=== PATIENT | male | born 1950 | race Caucasian/White ===

== ENCOUNTER → 2016-09-23 | Outpatient (CLI) | payer MEDICARE, BC ==
[~2016-09-23] VITALS: Ht 188 cm; Wt 119.3 kg
[~2016-09-23] MED LIST: ASPI1TAB PO; CIAL10TA PO; FISH100049 PO; HUMIKIT2 SC; IBUP200C PO; LIDOCAINE 2% INJ 100 MG/5 ML SDV (FOR ANES.) As Ordered ONE; NS 1,000 ML IV SCH; PROPOFOL 200 MG/20 ML VIAL As Ordered ONE
--- NOTE | 2016-09-23 11:26 | ROOR ---
Patient Name: Alfred Horn Procedure Date: 09/23/2016 10:58 AM Date of : 1950 Age: 66 Room: [facility] Gender: Male Note Status: Finalized Procedure: Colonoscopy Indications: Screening for colorectal malignant neoplasm Providers: Isiah DE LA O MD Referring MD: ESA SCHULTE MD Requesting Provider: Medicines: Monitored Anesthesia Care Complications: No immediate complications. Procedure: Pre-Anesthesia Assessment: - The heart rate, respiratory rate, oxygen saturations, blood pressure, adequacy of pulmonary ventilation, and response to care were monitored throughout the procedure. The Colonoscope was introduced through the anus and advanced to the cecum, identified by appendiceal orifice and ileocecal valve. The colonoscopy was performed without difficulty. The patient tolerated the procedure well. The quality of the bowel preparation was good. Findings: The perianal and digital rectal examinations were normal. (Exam: Complete, Prep: Good or Excellent.) A 5 mm polyp was found in the ascending colon. The polyp was sessile. The polyp was removed with a cold snare. Resection and retrieval were complete. A 4 mm polyp was found in the sigmoid colon. The polyp was sessile. The polyp was removed with a cold snare. Resection and retrieval were complete. A 6 mm polyp was found in the rectum. The polyp was sessile. The polyp was removed with a cold snare. Resection and retrieval were complete. To prevent bleeding after the polypectomy, two hemostatic clips were successfully placed (MR conditional). There was no bleeding at the end of the procedure. The exam was otherwise normal throughout the examined colon. Impression: - One 5 mm polyp in the ascending colon, removed with a cold snare. Resected and retrieved. - One 4 mm polyp in the sigmoid colon, removed with a cold snare. Resected and retrieved. - One 6 mm polyp (adenomatous) in the rectum, removed with a cold snare. Resected and retrieved. Clips (MR conditional) were placed. - The examination was otherwise normal on direct and retroflexion views. Recommendation: - Telephone endoscopist for pathology results in 2 weeks. - If the pathology report is benign, then repeat colonoscopy for surveillance in 3 years. Isiah De La O MD Isiah DE LA O MD 09/23/2016 11:26:31 AM This report has been signed electronically. Number of Addenda: 0 Note Initiated On: 09/23/2016 10:58 AM Estimated Blood Loss: Estimated blood loss: none.
[2016-09-23 11:54] VITALS: BP 151/90
== END | disposition home or self-care (01) ==
LOC: M OPP 10:10
PROVIDERS: ATTEND Internal Medicine Gastroenterology
DX: Z12.11 Encounter for screening for malignant neoplasm of colon (principal); D12.2 Benign neoplasm of ascending colon; D12.5 Benign neoplasm of sigmoid colon; K62.1 Rectal polyp; L40.9 Psoriasis, unspecified; Z87.891 Personal history of nicotine dependence; Z79.82 Long term (current) use of aspirin; Z79.899 Other long term (current) drug therapy; Z88.0 Allergy status to penicillin

== ENCOUNTER → 2017-01-10 | Outpatient (CLI) | payer MEDICARE, BC ==
[~2017-01-10] MED LIST changes: -LIDOCAINE 2% INJ 100 MG/5 ML SDV (FOR ANES.) As Ordered ONE; -NS 1,000 ML IV SCH; -PROPOFOL 200 MG/20 ML VIAL As Ordered ONE
[2017-01-10 18:01] LABS: BASO % 0.8 % (0.0-1.0); EOS # 0.2 K/mm3 (0.0-0.50); EOS % 2.7 % (0.0-3.0); LYMPH # 2.1 K/mm3 (1.5-4.5); LYMPH % 34.1 % (24.0-44.0); MEAN CORPUSCULAR HGB CONC 35.3 g/dl (32.0-36.5); MEAN CORPUSCULAR VOLUME 93.3 fl (80.0-96.0); MONO # 0.5 K/mm3 (0.0-0.8); MONO % 7.4 % (0.0-5.0); NEUTROPHILS # 3.2 K/mm3 (1.8-7.7); NEUTROPHILS % 52.2 % (36.0-66.0); RED CELL DISTRIBUTION WIDTH 13.8 % (11.5-14.5); WHITE BLOOD COUNT 6.1 K/mm3 (4.0-10.0)
[2017-01-10 18:55] LABS: ALBUMIN 3.8 GM/DL (3.2-5.2); ALT/SGPT 47 U/L (12-78); AST/SGOT 27 U/L (15-37); CREATININE FOR GFR 1.19 MG/DL (0.70-1.30); GLOMERULAR FILTRATION RATE > 60.0 (>49)
== END ==
LOC: M WUC 14:24
PROVIDERS: ATTEND Internal Medicine Rheumatology
DX: Z51.81 Encounter for therapeutic drug level monitoring (principal); Z79.899 Other long term (current) drug therapy

== ENCOUNTER → 2017-11-21 | Outpatient (REF) | payer MEDICARE, BC | LOC: M LAB REF 13:15 | DX: M19.072 Primary osteoarthritis, left ankle and foot (principal); Z89.422 Acquired absence of other left toe(s) | CPT/HCPCS: 88305 ==

== ENCOUNTER → 2019-07-27 | Outpatient (CLI) | payer MEDICARE, BC ==
[~2019-07-27] MED LIST changes: -ASPI1TAB PO; +ASPI81TA26 PO; -IBUP200C PO; +IBUP200C25 PO
--- NOTE | 2019-07-27 11:47 | REP ---
REASON: Right sided contusion. PRIORS: None. FINDINGS: Five views of the ribs show no acute fracture or destructive osseous lesion. The accompanying frontal view of the chest shows no cardiomegaly, infiltrates, effusions or pneumothoraces. IMPRESSION: Negative rib series. Electronically Signed by Yousif Knox DO 07/27/2019 12:16 P
== END ==
LOC: M ADAMS 09:40
PROVIDERS: ATTEND Physician Assistant
DX: S20.221A Contusion of right back wall of thorax, initial encounter (principal); Y92.9 Unspecified place or not applicable; Y93.9 Activity, unspecified; Y99.9 Unspecified external cause status

== ENCOUNTER → 2019-08-31 | Outpatient (CLI) | payer MEDICARE, BC ==
[2019-08-31 12:34] LABS: CHOLESTEROL RISK RATIO 2.934 (<5)
== END ==
LOC: M LAB 11:02
PROVIDERS: ATTEND Internal Medicine Cardiovascular Disease
DX: I25.10 Atherosclerotic heart disease of native coronary artery without angina pectoris (principal)

== ENCOUNTER → 2019-09-16 | Outpatient (CLI) | payer MEDICARE, BC ==
--- NOTE | 2019-09-16 16:56 | REP ---
Clinical: Dyspnea. Technique: PA and lateral. Comparison: 09/30/2002. Findings: Perihilar and lower lobe opacities suggest atelectasis/pneumonia. No effusion. No pneumothorax. Mediastinum and cardiac silhouette normal. Skeletal structures intact. Impression: Lower lobe opacities suggesting elements of atelectasis/pneumonia. Follow-up to resolution recommended. Electronically Signed by Matias Fuchs MD 09/16/2019 04:48 P
== END ==
LOC: M ADAMS 16:36
PROVIDERS: ATTEND Physician Assistant
DX: R91.8 Other nonspecific abnormal finding of lung field (principal); R06.00 Dyspnea, unspecified

== ENCOUNTER → 2019-09-19 | Outpatient (CLI) | payer MEDICARE, BC ==
--- NOTE | 2019-09-23 10:41 | SLEEPCENT ---
DATE OF PROCEDURE: 09/19/2019 ORDERED BY: Matias Tamez Nocturnal polysomnography was performed for evaluation of sleep physiology in this patient with a history of snoring and morning headaches. 7 hours and 54 minutes of data were reviewed. There were 341.5 minutes of sleep identified. Sleep latency was short at 3.5 minutes. Rapid eye movement (REM) latency was prolonged at 166 minutes. Sleep architecture was poor. There were 3 REM cycles noted. Overall sleep efficiency was 73.4%. The patient's electrocardiogram showed a sinus rhythm with an average heart rate 60 beats per minute. Electroencephalogram showed electrocardiogram (EKG) artifact. No focal events were identified. There were normal waveforms for awake and sleep stages. There were 132 respiratory events identified of 10 seconds in duration or greater for an apnea-hypopnea index of 23.2. The events were primarily obstructive with 18 mixed and central apneas. Arousals from respiratory events occurred 11.4 times per hour and oxygen desaturations were seen into the 80s. There was some limb activity appreciated as well. Limb movement arousal index was 4. IMPRESSION: Obstructive sleep apnea syndrome (G47.33). Apnea-hypopnea index 23.2. RECOMMENDATION: The patient should be encouraged to return to the sleep disorder center for pressure therapy. In the interim, alcohol and sedative avoidance should be practiced and caution exercised during the operation of motor vehicles.
== END ==
LOC: M SLEEP 19:22
PROVIDERS: ATTEND Physician Assistant
DX: R06.83 Snoring (principal)

== ENCOUNTER 2019-10-10 16:25 | Emergency (ER) | payer MEDICARE, BC ==
[~2019-10-10] VITALS: Ht 188 cm; Wt 113.6 kg
[2019-10-10] MEDS ORDERED: CLOP75TA2 (16:44)
[2019-10-10] MEDS ORDERED: ATOR80TA59 (16:44)
[2019-10-10] MEDS ORDERED: METO1TAB87 PO (16:44)
--- NOTE | 2019-10-10 17:14 | REPVR ---
PROCEDURE INFORMATION: Exam: CT Head Without Contrast Exam date and time: 10/10/2019 4:42 PM Age: 69 years old Clinical indication: Altered mental status/memory loss TECHNIQUE: Imaging protocol: Computed tomography of the head without contrast. Axial and coronal reformatted images were created and reviewed. Radiation optimization: All CT scans at this facility use at least one of these dose optimization techniques: automated exposure control; mA and/or kV adjustment per patient size (includes targeted exams where dose is matched to clinical indication); or iterative reconstruction. COMPARISON: No relevant prior studies available. FINDINGS: Brain: Subtle, patchy areas of hypoattenuation in the periventricular and subcortical white matter, nonspecific but suggestive of mild chronic small vessel ischemic disease. No CT evidence of acute intracranial hemorrhage or acute territorial infarction. No significant mass effect or midline shift. Basal cisterns patent. Ventricles: Prominence of the cortical sulci, cisterns and ventricular system, consistent with cerebral and cerebellar volume loss. Bones/joints: No acute osseous abnormality. Sinuses: Grossly unremarkable. Mastoid air cells: Grossly unremarkable. Soft tissues: Grossly unremarkable. Vasculature: Calcific atherosclerotic disease in the cavernous internal carotid arteries. IMPRESSION: 1. No CT evidence of acute intracranial pathology. 2. Additional findings, as above. Electronically signed by: Mio Cao On 10/10/2019 17:14:37 PM
[2019-10-10 17:28] LABS: VENOUS HCO3 24.9 MEQ/L (23.0-27.0); VENOUS O2 SATURATION 50.6 % (60.0-80.0); VENOUS PARTIAL PRESSURE CO2 45.6 mmHg (38.0-50.0); VENOUS PH 7.355 UNITS (7.330-7.430); VENOUS STANDARD HCO3 22.2 MEQ/L; VENOUS TOTAL CO2 26.3 MEQ/L (24.0-28.0)
[2019-10-10 17:37] LABS: BASO % 0.7 % (0.0-1.0); EOS # 0.1 10^3/uL (0.0-0.5); EOS % 2.2 % (0.0-3.0); HEMATOCRIT 50.4 % (42.0-52.0); HEMOGLOBIN 17.6 g/dl (13.5-17.5); LYMPH # 1.4 10^3/uL (1.5-5.0); LYMPH % 23.6 % (24.0-44.0); MEAN CORPUSCULAR HEMOGLOBIN 31.9 pg (27.0-33.0); MEAN CORPUSCULAR HGB CONC 34.9 g/dl (32.0-36.5); MEAN CORPUSCULAR VOLUME 91.3 fl (80.0-96.0); MONO # 0.6 10^3/uL (0.0-0.8); MONO % 9.8 % (0.0-5.0); NEUTROPHILS # 3.8 10^3/uL (1.5-8.5); NEUTROPHILS % 63.4 % (36.0-66.0); PLATELET COUNT, AUTOMATED 177 10^3/uL (150-450); RED BLOOD COUNT 5.52 10^6/uL (4.30-6.10); WHITE BLOOD COUNT 5.9 10^3/uL (4.0-10.0)
[2019-10-10] MEDS ORDERED: MECLIZINE 25 MG TABLET PO ONE ×2 (17:45→21:30)
[2019-10-10 18:12] LABS: ALT/SGPT 66 U/L (12-78); BILIRUBIN,DIRECT 0.3 MG/DL (0.0-0.2); BLOOD UREA NITROGEN 13 MG/DL (7-18); CALCIUM LEVEL 9.2 MG/DL (8.8-10.2); CARBON DIOXIDE LEVEL 28 MEQ/L (21-32); CHLORIDE LEVEL 108 MEQ/L (98-107); CK-MB VALUE MASS 2.8 NG/ML (<3.6); CPK CREATINE PHOSPHOKINASE 131 U/L (39-308); CREATININE FOR GFR 0.96 MG/DL (0.70-1.30); GLOMERULAR FILTRATION RATE > 60.0 (>42); GLUCOSE, FASTING 83 MG/DL (70-100); MB/CK RELATIVE INDEX 2.14 (< OR =4); POTASSIUM SERUM 4.2 MEQ/L (3.5-5.1); SODIUM LEVEL 142 MEQ/L (136-145); THYROID STIMULATING HORMONE 0.839 uIU/ML (0.358-3.740); TOTAL PROTEIN 7.6 GM/DL (6.4-8.2); TROPONIN I < 0.02 NG/ML (< 0.10)
--- NOTE | 2019-10-10 18:44 | REP ---
CHEST, SINGLE VIEW: There is no evidence of acute infiltrate. No pleural effusion is seen. The heart is normal in size. The mediastinal silhouette is unremarkable. The visualized osseous structures are intact. IMPRESSION: No acute pulmonary disease. Electronically Signed by Derek Maya MD 10/11/2019 05:04 P
[2019-10-10] MEDS ORDERED: MECL1TAB31 PO (19:53)
--- NOTE | 2019-10-10 21:20 | ECGEPIP ---
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
[2019-10-10 21:33] VITALS: BP 135/67
== END 2019-10-10 21:35 | disposition home or self-care (01) ==
LOC: M ED 16:25
DX: R42 Dizziness and giddiness (principal); I25.10 Atherosclerotic heart disease of native coronary artery without angina pectoris; G47.33 Obstructive sleep apnea (adult) (pediatric); Z95.5 Presence of coronary angioplasty implant and graft; Z88.0 Allergy status to penicillin; Z79.899 Other long term (current) drug therapy; Z79.82 Long term (current) use of aspirin; Z79.01 Long term (current) use of anticoagulants

== ENCOUNTER → 2019-10-20 | Outpatient (CLI) | payer MEDICARE, BC ==
[~2019-10-20] MED LIST changes: +ATOR80TA59; +CLOP75TA2; +MECL1TAB31 PO; +METO1TAB87 PO
--- NOTE | 2019-10-22 12:28 | SLEEPCENT ---
DATE OF PROCEDURE: 10/20/2019 ORDERED BY: SMOOTH Dunn Nocturnal polysomnography was performed for the titration of pressure therapy in this patient with obstructive sleep apnea syndrome. Apnea-hypopnea index 23.2. For testing a ResMed AirFit F20 full-face mask of large size was used; 4 cm of water pressure were applied to the circuit and the lights were extinguished. 7 hours and 28 minutes of data were reviewed. There were 287 minutes of sleep identified. Sleep latency was short of 23.5 minutes. Rapid eye movement (REM) latency was short at 57.5 minutes. Sleep architecture was good with three REM cycles. Overall sleep efficiency was 65.2%. The patient's electrocardiogram showed a sinus rhythm with an average heart rate of 65 beats per minute. Electroencephalogram (EEG) showed normal waveforms for awake and sleep. Respiratory events were fully palliated with CPAP at a pressure +8. There was some persistent activity in the limb leads. Limb movement arousal index on this occasion was 7.7. IMPRESSION: Obstructive sleep apnea syndrome (G47.33). RECOMMENDATIONS: Nightly use of pressure therapy 8 cm of water.
== END ==
LOC: M SLEEP 19:44
PROVIDERS: ATTEND Physician Assistant
DX: G47.33 Obstructive sleep apnea (adult) (pediatric) (principal)

== ENCOUNTER → 2020-06-13 | Outpatient (CLI) | payer MEDICARE, BC ==
[~2020-06-13] MED LIST changes: -ATOR80TA59; +ATOR80TA59 PO; -CLOP75TA2; +CLOP75TA2 PO; +FISH1000 PO; +NITR0.4S14 SL; +SYMB80INH INH; +VENL75TA2 PO; +VENTAER INH
== END ==
LOC: M LABSMTC 08:29
PROVIDERS: ATTEND Anesthesiology
DX: Z01.812 Encounter for preprocedural laboratory examination (principal); Z20.828 Contact with and (suspected) exposure to other viral communicable diseases
CPT/HCPCS: C9803; U0003

== ENCOUNTER 2020-06-18 09:03 | Day surgery (SDC) | payer MEDICARE, BC ==
[~2020-06-18] VITALS: Ht 188 cm; Wt 116.1 kg
[~2020-06-18 09:03] MED LIST changes: +NS 1,000 ML IV ONE
[2020-06-18] MEDS ORDERED: propofoL 200 MG/20 ML VIAL As Ordered ONE (09:56)
[2020-06-18] MEDS ORDERED: LIDOCAINE 2% 100MG/5ML SDV (FOR ANES.) As Ordered ONE (09:56)
--- NOTE | 2020-06-18 11:29 | ROOR ---
Patient Name: Alfred Horn Procedure Date: 06/18/2020 11:05 AM Date of : 1950 Age: 69 Room: [facility] Gender: Male Note Status: Finalized Procedure: Colonoscopy Indications: High risk colon cancer surveillance: Personal history of colonic polyps, Last colonoscopy: September 2016 Providers: Isiah DE LA O MD Referring MD: ESA SCHULTE MD Requesting Provider: Medicines: Monitored Anesthesia Care Complications: No immediate complications. Procedure: Pre-Anesthesia Assessment: - The heart rate, respiratory rate, oxygen saturations, blood pressure, adequacy of pulmonary ventilation, and response to care were monitored throughout the procedure. The Colonoscope was introduced through the anus and advanced to the cecum, identified by appendiceal orifice and ileocecal valve. The colonoscopy was performed without difficulty. The patient tolerated the procedure well. The quality of the bowel preparation was good. Findings: The perianal and digital rectal examinations were normal. Two sessile polyps were found in the sigmoid colon and splenic flexure. The polyps were diminutive in size. These polyps were removed with a cold snare. Resection and retrieval were complete. Mild sigmoid diverticulosis and small internal hemorrhoids. The exam was otherwise without abnormality on direct and retroflexion views. Impression: - Two diminutive polyps in the sigmoid colon and at the splenic flexure, removed with a cold snare. Resected and retrieved. - Mild sigmoid diverticulosis and small internal hemorrhoids. - The examination was otherwise normal on direct and retroflexion views. Recommendation: - Repeat colonoscopy in 5 years for surveillance. Isiah De La O MD Isiah DE LA O MD 06/18/2020 11:28:25 AM Electronically signed by Isiah DE LA O MD Number of Addenda: 0 Note Initiated On: 06/18/2020 11:05 AM Estimated Blood Loss: Estimated blood loss: none.
[2020-06-18 11:55] VITALS: BP 145/82
== END 2020-06-18 12:08 | disposition home or self-care (01) ==
LOC: M OPP 09:03
PROVIDERS: ATTEND Internal Medicine Gastroenterology
DX: Z12.11 Encounter for screening for malignant neoplasm of colon (principal); Z86.010 Personal history of colon polyps; D12.3 Benign neoplasm of transverse colon; D12.5 Benign neoplasm of sigmoid colon; K57.30 Diverticulosis of large intestine without perforation or abscess without bleeding; K64.8 Other hemorrhoids; I10 Essential (primary) hypertension; G47.30 Sleep apnea, unspecified; I25.2 Old myocardial infarction; Z79.82 Long term (current) use of aspirin; Z79.899 Other long term (current) drug therapy; Z88.0 Allergy status to penicillin; Z95.5 Presence of coronary angioplasty implant and graft; Z87.891 Personal history of nicotine dependence

== ENCOUNTER → 2020-10-08 | Outpatient (CLI) | payer MEDICARE, BC ==
[~2020-10-08] MED LIST changes: -NS 1,000 ML IV ONE
[2020-10-08 14:07] LABS: CHOLESTEROL RISK RATIO 2.957 (<5)
== END ==
LOC: M PLALAB 10:32
PROVIDERS: ATTEND Nurse Practitioner
DX: E78.2 Mixed hyperlipidemia (principal); Z98.61 Coronary angioplasty status

== ENCOUNTER 2021-04-13 12:57 | Emergency (ER) | payer MEDICARE, BC ==
[~2021-04-13] VITALS: Ht 188 cm; Wt 119.3 kg
[2021-04-13 15:48] VITALS: BP 162/72
--- NOTE | 2021-04-13 16:02 | REP ---
INDICATION: TRAUMA, PAIN. COMPARISON: None. TECHNIQUE: Four views of the right calf are provided. FINDINGS: Four views of the right calf demonstrate vascular calcification. There is some dystrophic soft tissue calcification in the posterior thigh soft tissues as well. There is patellar articular spurring consistent with osteoarthritis. There is patellar tendon insertion site spurring on the inferior pole of patella as well. Plantar calcaneal spurring is noted. No fracture or subluxation is seen. No opaque foreign body noted. IMPRESSION: Patellar and heel spurring. Vascular calcification. No fracture or other acute bony abnormality. <Electronically signed by Jefferson Salas > 04/13/21 0900
== END 2021-04-13 16:00 | disposition home or self-care (01) ==
LOC: M ED 12:57
DX: S80.11XA Contusion of right lower leg, initial encounter (principal); S80.811A Abrasion, right lower leg, initial encounter; W22.8XXA Striking against or struck by other objects, initial encounter; Y92.018 Other place in single-family (private) house as the place of occurrence of the external cause; I10 Essential (primary) hypertension; J45.909 Unspecified asthma, uncomplicated; I25.10 Atherosclerotic heart disease of native coronary artery without angina pectoris; Z79.899 Other long term (current) drug therapy; Z79.82 Long term (current) use of aspirin; Z79.01 Long term (current) use of anticoagulants; Z88.0 Allergy status to penicillin; Z87.891 Personal history of nicotine dependence

== ENCOUNTER → 2022-01-26 | Outpatient (CLI) | payer MEDICARE, BC | LOC: M WUC 09:56 | PROVIDERS: ATTEND Internal Medicine | DX: R06.00 Dyspnea, unspecified (principal); M54.32 Sciatica, left side ==

== ENCOUNTER → 2022-06-10 | Outpatient (CLI) | payer MEDICARE, BC ==
[2022-06-10 14:19] LABS: ALBUMIN 3.6 GM/DL (3.2-5.2); BILIRUBIN,DIRECT 0.3 MG/DL (0.0-0.2); BILIRUBIN,TOTAL 0.8 MG/DL (0.2-1.0); TOTAL PROTEIN 7.8 GM/DL (6.4-8.2)
== END ==
LOC: M LABDRWAD 09:58
PROVIDERS: ATTEND Internal Medicine Rheumatology
DX: Z79.899 Other long term (current) drug therapy (principal)

== ENCOUNTER → 2022-06-20 | Outpatient (CLI) | payer MEDICARE, BC ==
[2022-06-20 12:43] LABS: HEMATOCRIT 47.1 % (42.0-52.0); HEMOGLOBIN 15.8 g/dl (13.5-17.5); MEAN CORPUSCULAR HEMOGLOBIN 31.6 pg (27.0-33.0); MEAN CORPUSCULAR HGB CONC 33.5 g/dl (32.0-36.5); MEAN CORPUSCULAR VOLUME 94.2 fl (80.0-96.0); PLATELET COUNT, AUTOMATED 218 10^3/uL (150-450); WHITE BLOOD COUNT 6.6 10^3/uL (4.0-10.0)
[2022-06-20 13:04] LABS: INR 0.96
[2022-06-20 13:18] LABS: ALBUMIN 3.7 GM/DL (3.2-5.2); ALT/SGPT 61 U/L (12-78); BILIRUBIN,TOTAL 0.7 MG/DL (0.2-1.0); BLOOD UREA NITROGEN 18 MG/DL (7-18); CALCIUM LEVEL 9.3 MG/DL (8.8-10.2); CARBON DIOXIDE LEVEL 25 MEQ/L (21-32); CHLORIDE LEVEL 109 MEQ/L (98-107); CREATININE FOR GFR 1.04 MG/DL (0.70-1.30); GLOMERULAR FILTRATION RATE > 60.0 (>42); GLUCOSE, FASTING 142 MG/DL (70-100); POTASSIUM SERUM 3.9 MEQ/L (3.5-5.1); SODIUM LEVEL 138 MEQ/L (136-145); TOTAL PROTEIN 7.7 GM/DL (6.4-8.2)
[2022-06-20 13:50] LABS: ERYTHROCYTE SEDIMENTATION RATE 13 mm/hr (0-20)
== END ==
LOC: M RAD 10:26
PROVIDERS: ATTEND Orthopaedic Surgery
DX: M16.12 Unilateral primary osteoarthritis, left hip (principal); Z79.899 Other long term (current) drug therapy